=== PATIENT | female | born 1955 | race Caucasian/White ===

== ENCOUNTER 2019-04-23 17:23 | Inpatient (IN) | payer OTHER ==
[~2019-04-23] VITALS: Ht 170.2 cm; Wt 81.4 kg
[2019-04-23 17:26] VITALS: BP 84/50
[2019-04-23 18:02] LABS: ABSOLUTE NEUTROPHILS 4.5 thou/uL (1.4-8.2); BASOPHILS 0.6 % (0.0-2.0); EOSINOPHILS 1.7 % (0.0-3.0); HEMATOCRIT 31.2 % (37.0-47.0); HEMOGLOBIN 10.7 gm/dL (12.0-15.0); MCH 30.8 pg (26.0-34.0); MCHC 34.2 g/dL (28.0-37.0); MONOCYTES 10.6 % (1.0-8.0); PLATELET COUNT 112 thou/uL (150-400); POLYS 63.1 % (36.0-66.0); RBC 3.46 mil/uL (4.20-5.00); WBC 7.2 thou/uL (4.0-11.0)
[2019-04-23 18:14] LABS: ANION GAP 5 mmol/L (7-16); BUN 73 mg/dL (7-18); CALCIUM 9.5 mg/dL (8.5-10.1); CHLORIDE 101 mmol/L (98-107); CO2 33 mmol/L (21-32); CREATININE 4.1 mg/dL (0.6-1.0); GLUCOSE 111 mg/dL (74-106); POTASSIUM 3.2 mmol/L (3.5-5.1); SODIUM 139 mmol/L (136-145)
[2019-04-23 18:24] LABS: ALBUMIN 3.4 g/dL (3.4-5.0); SGOT 9 U/L (15-37); SGPT 12 U/L (30-65); TOTAL BILIRUBIN 0.5 mg/dL (<0.1-1.0); TOTAL PROTEIN 6.5 g/dL (6.4-8.2); TROPONIN-I <0.06 ng/mL (<0.06)
[2019-04-23 18:57] LABS: BE(vivo) 5.8 mmol/L (-2 to +3); HCO3 29.8 mmol/L (22.0-26.0); PCO2 40.9 mmHg (35.0-45.0); PO2 67.9 mmHg (80.0-100.0); sO2 94.7 % (92.0-98.0)
[2019-04-23 19:39] LABS: URINE BILIRUBIN NEGATIVE (Negative); URINE BLOOD NEGATIVE (Negative); URINE CLARITY CLEAR; URINE COLOR YELLOW; URINE GLUCOSE-RANDOM* NEGATIVE (Negative); URINE KETONES NEGATIVE (Negative); URINE NITRITE-REFLEX NEGATIVE (Negative); URINE PROTEIN (DIPSTICK) NEGATIVE (Negative); URINE UROBILINOGEN 0.2 E.U./dl (0.2-1.0)
[2019-04-23 19:42] LABS: URINE LEUKOCYTES-REFLEX 1+ (Negative)
[2019-04-23 20:05] LABS: CASTS None Seen /LPF (None Seen); CRYSTALS None Seen /LPF (None Seen); SQUAMOUS 0-3 Few /LPF (0-3); URINE RBC None Seen /HPF (0-2); URINE WBC-REFLEX 6-15 Few /HPF (0-5)
[2019-04-23 21:00] VITALS: BP 86/57
[2019-04-23 21:56] VITALS: BP 141/68
[2019-04-23] MEDS ORDERED: NORVASC 2.5 MG2.5 M1 PO (22:31)
[2019-04-23] MEDS ORDERED: ASA81BEC PO (22:31)
[2019-04-23] MEDS ORDERED: BENZTROPINE ME0.5 MG PO (22:32)
[2019-04-23] MEDS ORDERED: FAMOTIDINE 20 M20 MG PO (22:32)
[2019-04-23] MEDS ORDERED: FUROSEMIDE 20 M20 MG PO (22:33)
[2019-04-23] MEDS ORDERED: HYDROCHLOROTHIA25 M1 PO (22:33)
[2019-04-23] MEDS ORDERED: ZESTRIL40 MG PO (22:34)
[2019-04-23] MEDS ORDERED: LOSARTAN POTAS100 MG PO (22:35)
[2019-04-23] MEDS ORDERED: VITAMIN D21250 MC1 PO (22:36)
[2019-04-23] MEDS ORDERED: CARVEDILOL25 MG PO (22:37)
[2019-04-23] MEDS ORDERED: SYMBICORT80 MCG/4.1 INH (22:37)
[2019-04-23] MEDS ORDERED: MIRTAZAPINE7.5 MG PO (22:38)
[2019-04-23] MEDS ORDERED: ATORVASTATIN CA80 MG PO (22:38)
[2019-04-23] MEDS ORDERED: ZOLOFT25 MG PO (22:39)
[2019-04-23] MEDS ORDERED: RISPERDAL 1 MG T1 MG PO (22:39)
[2019-04-23] MEDS ORDERED: TYLENOL325 MG PO (22:40)
[2019-04-23] MEDS ORDERED: PROAIR HFA8.5 GM INH (22:42)
[2019-04-24 04:14] VITALS: BP 140/85
[2019-04-24 04:56] LABS: HEMATOCRIT 30.6 % (37.0-47.0); HEMOGLOBIN 10.2 gm/dL (12.0-15.0); MCH 30.6 pg (26.0-34.0); MCHC 33.4 g/dL (28.0-37.0); MCV 91.7 fL (80.0-100.0); RBC 3.34 mil/uL (4.20-5.00); RDW 14.2 % (10.5-14.5); WBC 6.4 thou/uL (4.0-11.0)
[2019-04-24 05:17] LABS: CALCIUM 9.1 mg/dL (8.5-10.1); CREATININE 3.3 mg/dL (0.6-1.0); POTASSIUM 3.5 mmol/L (3.5-5.1)
[2019-04-24 07:49] VITALS: BP 99/71
[2019-04-24 11:28] VITALS: BP 109/78
[2019-04-24 16:24] VITALS: BP 119/75
[2019-04-24 19:27] VITALS: BP 135/79
[2019-04-25 03:32] VITALS: BP 110/22
[2019-04-25 07:07] LABS: CALCIUM 9.1 mg/dL (8.5-10.1); PHOSPHORUS 2.7 mg/dL (2.5-4.9); POTASSIUM 3.4 mmol/L (3.5-5.1)
[2019-04-25 07:24] LABS: CREATININE 1.6 mg/dL (0.6-1.0)
[2019-04-25 08:09] VITALS: BP 132/68
[2019-04-25] MEDS ORDERED: CEFUROXIME250 MG PO (10:04)
[2019-04-25] MEDS ORDERED: COREG6.25 MG PO (10:05)
[2019-04-25 12:19] VITALS: BP 131/82
--- NOTE | 2019-04-25 14:51 | EKG ---
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 : 1955 Requested By: Giselle Carrillo Order Number: [id number] MD: Cezar Navas Measurements Intervals [place] Rate: 93 P: 97 [place]: 158 QRS: 31 QRSD: 125 T: 115 QT: 430 QTc: 535 Interpretive Statements Sinus rhythm Paired ventricular premature complexes Left bundle branch block Baseline wander in lead(s) II No previous ECG available for comparison Electronically Signed On 04-25-2019 14:51:14 WINDOWS SYSTEMS ADMINISTRATOR by Cezar Navas [email or web address] <ELECTRONICALLY SIGNED> By: Cezar Navas MD 04/25/19 1451 01 01 Cezar Navas MD /ALICIA
== END 2019-04-25 14:51 | DRG 682 ==
LOC: ER 17:23 → 3W 20:44 → EROBS 20:44 → 3W 21:36
PROVIDERS: Emergency Medicine; Nurse Practitioner Family; Physician Assistant; ADMIT Hospitalist
DX: N17.9 Acute kidney failure, unspecified (principal); G92 Toxic encephalopathy; N39.0 Urinary tract infection, site not specified; J44.9 Chronic obstructive pulmonary disease, unspecified; E78.5 Hyperlipidemia, unspecified; F32.9 Major depressive disorder, single episode, unspecified; I12.9 Hypertensive chronic kidney disease with stage 1 through stage 4 chronic kidney disease, or unspecified chronic kidney disease; K21.9 Gastro-esophageal reflux disease without esophagitis; F10.97 Alcohol use, unspecified with alcohol-induced persisting dementia; R41.0 Disorientation, unspecified; I95.9 Hypotension, unspecified; N18.9 Chronic kidney disease, unspecified; D64.9 Anemia, unspecified; D64.89 Other specified anemias; Z88.6 Allergy status to analgesic agent; Z87.891 Personal history of nicotine dependence; Z79.899 Other long term (current) drug therapy
CPT/HCPCS: 10879